=== PATIENT | male | born 1995 | race African-American/Black ===

== ENCOUNTER → 2024-02-15 10:20 | Outpatient (CLI) | payer OTHER, SELFPAY ==
--- NOTE | 2024-02-15 10:25 | DI.MRI.S_ITS ---
PROCEDURE: MR LOWER LEG LT WO CON COMPARISON: None. INDICATIONS: LEFT ACHILLES PAIN Technique: Multiplanar and multisequence MR images of left lower leg were obtained without IV contrast. FINDINGS: Bones and joints: Lower leg alignment is anatomic. There is no marrow edema. No fracture or dislocation. No suspicious intraosseous lesion. No cortical erosion or abnormal periosteal reactions. Soft tissues: There is high-grade partial to full-thickness rupture involving Achilles tendon approximately 3.4 cm from its insertion on posterior calcaneus with proximal retraction of torn tendon fibers and a fluid-filled gap measures 4.7 cm in length. Significant edema involving mid to distal portion of the soleus muscle. No fluid distending fascial plane between soleus muscle and medial head of gastrocnemius. The plantaris tendon is intact. No other muscle or tendon signal abnormalities. IMPRESSION: 1. High-grade partial to full-thickness rupture of Achilles tendon approximately 3.4 cm from its insertion on posterior calcaneus and proximal retraction of torn tendon fibers with a fluid-filled gap measures up to 4.7 cm in length. 2. Suggestion of muscle strain involving mid to distal portion of soleus muscle. The plantaris tendon is intact. No signal abnormality is seen in gastrocnemius muscle. 3. No marrow signal abnormality. No fracture or dislocation. No suspicious bony lesions. Dictated by: Kalyan Carrion M.D. on 02/15/2024 at 23:09 Approved by: Kalyan Carrion M.D. on 02/15/2024 at 23:13
== END ==
PROVIDERS: Referring Provider Nurse Practitioner Family; Visit Provider Nurse Practitioner Family
DX: S86.092A Other specified injury of left Achilles tendon, initial encounter (principal); S86.012A Strain of left Achilles tendon, initial encounter; X58.XXXA Exposure to other specified factors, initial encounter
CPT/HCPCS: 73718